=== PATIENT | male | born 1970 | race Caucasian/White ===

== ENCOUNTER 2017-04-13 14:00 | Outpatient (CLI) | payer OTHER | END 2017-04-13 14:14 | disposition home or self-care (01) | LOC: RAD 14:00 | DX: J11.89 Influenza due to unidentified influenza virus with other manifestations (principal); J16.8 Pneumonia due to other specified infectious organisms ==

== ENCOUNTER 2021-01-23 08:00 | Outpatient (CLI) | payer OTHER | END 2021-01-23 08:30 | disposition home or self-care (01) | LOC: PPH VACUNA 08:00 | PROVIDERS: ATTEND Emergency Medicine Pediatric Emergency Medicine | DX: Z23 Encounter for immunization (principal) ==

== ENCOUNTER 2021-07-03 09:10 | Outpatient (CLI) | payer OTHER | END 2021-07-03 09:40 | disposition home or self-care (01) | LOC: PPH VACUNA 09:10 | PROVIDERS: ATTEND Emergency Medicine Pediatric Emergency Medicine | DX: Z23 Encounter for immunization (principal) ==

== ENCOUNTER 2021-11-02 07:59 | Outpatient (CLI) | payer OTHER | END 2021-11-02 23:00 | disposition home or self-care (01) | LOC: LAB 07:59 | DX: Z20.828 Contact with and (suspected) exposure to other viral communicable diseases (principal) ==